=== PATIENT | male | born 1970 | race Two or more races ===

== ENCOUNTER 2020-01-04 09:33 | Emergency (ER) | payer MEDICAID, MEDICARE ==
[~2020-01-04] VITALS: Ht 172.7 cm; Wt 77.1 kg
[2020-01-04 09:43] VITALS: BP 123/89
== END 2020-01-04 10:14 | disposition left against medical advice (07) ==
LOC: EDUNIT# 09:33 → ER 09:33 → EDBD 09:33 → ER 10:14
DX: F31.9 Bipolar disorder, unspecified (principal); Z53.21 Procedure and treatment not carried out due to patient leaving prior to being seen by health care provider